=== PATIENT | female | born 1980 | race Caucasian/White ===

== ENCOUNTER → 2021-08-22 10:15 | Outpatient (CLI) | payer OTHER, SELFPAY ==
[2021-08-22 12:35] LABS: Vitamin D,25 Hydroxy 20.8 ng/mL
[2021-08-22 12:40] LABS: Anion Gap 9 (5-15); BUN 8 mg/dL (7-18); BUN/Creat Ratio 11.6 RATIO (10-20); Calcium,Total 8.3 mg/dL (8.5-10.1); Chloride 107 mmol/L (98-107); Cholesterol 165 mg/dL (200); Creatinine, Serum 0.69 mg/dL (0.55-1.02); EST Glomerular Filtration Rate 100 mL/min (>60); Est Glom Filt Rate - Afr Amer 122 mL/min (>60); Glucose 106 mg/dL (74-106); High Density Lipoprotein 51 mg/dL; Potassium 4.1 mmol/L (3.5-5.1); Sodium Level 140 mmol/L (136-145); Thyroid Stim Hormone (TSH) 2.22 uIU/mL (0.358-3.74); Triglycerides 120 mg/dL; Very Low Density Lipoprotein 24 mg/dL (5-40)
== END ==
PROVIDERS: PCP Family Medicine; Referring Provider Family Medicine; Visit Provider Family Medicine
DX: Z00.00 Encounter for general adult medical examination without abnormal findings (principal); E28.2 Polycystic ovarian syndrome
CPT/HCPCS: 36415; 80048; 80061; 82306; 84403; 84443

== ENCOUNTER → 2021-09-11 18:06 | Outpatient (CLI) | payer OTHER, SELFPAY | PROVIDERS: PCP Family Medicine; Visit Provider Family Medicine | DX: Z20.822 Contact with and (suspected) exposure to COVID-19 (principal) | CPT/HCPCS: 87635; U0005; U0003 ==

== ENCOUNTER → 2021-09-13 17:51 | Outpatient (CLI) | payer OTHER, SELFPAY ==
[2021-09-13 18:58] LABS: Probe Check PASS; Specimen Processing Control PASS
== END ==
PROVIDERS: Visit Provider Family Medicine
DX: Z20.822 Contact with and (suspected) exposure to COVID-19 (principal)
CPT/HCPCS: 87635; U0005; U0003

== ENCOUNTER 2021-09-28 10:00 | Outpatient (RCR) | payer OTHER, SELFPAY ==
--- NOTE | 2021-08-08 15:38 | HP.OTEVAL ---
Patient's Visit Information MIA ESTEVES is a 41 year old F, referred to Occupational Therapy by Dr. Tavo Mcginnis MD, with a diagnosis of Right gamekeeper's thumb. Date of Evaluation: 08/08/21 Occupational Therapist: Benita Toth, OTR/L, CHT - Subjective This 41 year old female was seen for OT eval with dx of right gamekeeper's thumb. pt states this has bothered her for sometime opening jars- but last three weeks pain has increased. Pt would like to decrease her pain to return to her PLOF. - ADLs Fasteners: Buttons, Snaps Comments: pain with changing Christine diaper - Pain right hand 0 Pain Intensity Range: 3 - ROM CMC: right 15 left 15 MP: right 45 left 50 IP: right 65 left 70 - Strength Appliquer Zigzag: right 45 left 55 Lateral Pinch: right 4 left 10 Tripod Pinch: right 8 left 8# - Quick DASH-Disab of Arm,Shoulder& Hand Quick DASH Score: 27.2725 - Goals Goal:: pt will demo a increase in right ultrasonographer strength by 15# or greater by d/c to increase pts IND with ADLs and IADls. pt will demo a increase in lateral pinch by 2# to increase pts ind. by ADls and IADls by d/c Goal:: pt will report no pain greater than 1/10 with use of right hand with ADLs and IADls by d/c Goal:: pt will demo increase in right thumb stability while keeping joint protect diane. to decrease lateral stress on MCP of right thumb by d.c - Rehabilitation General Assessment: pt demo with right thumb instability increasing pain with use of right hand with ADLs and IADLs. pt demo need for skilled OT services 1-2x week for 2-4 weeks. Today therapist ed, pt on thumb mechanics and need of support with MP instability- pt demo understanding and agree to PLOC. Rehabilitation Potential: Good - Anticipated Interventions A/AAROM/PROM, Strengthening, Modalities, Orthoses, Joint Protection/Energy Conservation, Ergonomic Education, Education re Diagnosis - Visit Plan Frequency: 1-2x /Week Duration: 2-4 Weeks TEXT: Thank you for the opportunity to evaluate your patient. For Medicare and Medicare HMO plans, please review the plan of care and approve it. It will need to be FAXED BACK to us at [phone] for Medicare purposes. Please let me know if there are questions or concerns regarding this plan of care. Physician Signature: Date:
--- NOTE | 2021-09-28 10:18 | HP.OTDCSUM_ITS ---
It has been my pleasure to treat MIA ESTEVES under orders from Dr. Tavo Mcginnis MD, for the diagnosis of Right gamekeeper's thumb for a total of 8 visit(s). Please see the following information for a summary of their discharge status. % Improvement: 98 Objective/Function: pt demo with a right fresh work inspector strength of 40# and left at 40#. pt reports no pain and has made adj. to prevent UCL stress of right MP. Patient Goals: Decrease Pain Goal:: pt will demo a increase in right fresh work inspector strength by 15# or greater by d/c to increase pts IND with ADLs and IADls. pt will demo a increase in lateral pinch by 2# to increase pts ind. by ADls and IADls by d/c Goal:: pt will report no pain greater than 1/10 with use of right hand with ADLs and IADls by d/c Goal:: pt will demo increase in right thumb stability while keeping joint prot ect diane. to decrease lateral stress on MCP of right thumb by d.c Plan: Cont POC Discharge Comments: pt was seen for 7 OT treatments for UCL -game keepers thumb. pt reports no pain and ind. with ADLs and IADLs. pt has met goals and is d.c at this time. If there are questions or concerns regarding this patient's occupational therapy, please fell free to call me at [phone]. Thank you for the referral of this patient. Sincerely, Benita Toth, OTR/L, CHT
== END 2021-09-28 12:53 | disposition home or self-care (01) ==
LOC: OT 10:00
PROVIDERS: PCP Family Medicine; Referring Provider Family Medicine; Visit Provider Family Medicine
DX: S63.641D Sprain of metacarpophalangeal joint of right thumb, subsequent encounter (principal)
CPT/HCPCS: 97035; 97110; 97166; 97530; 97760

== ENCOUNTER → 2021-10-12 | Outpatient (CLI) | payer OTHER, SELFPAY | END | disposition home or self-care (01) | LOC: LABSPEC 11-06 13:19 | PROVIDERS: Visit Provider Nurse Practitioner Family | DX: Z20.822 Contact with and (suspected) exposure to COVID-19 (principal) | CPT/HCPCS: 87635; U0005; U0003 ==

== ENCOUNTER 2021-11-06 13:17 | Outpatient (CLI) | payer OTHER, SELFPAY | END 2021-11-06 23:59 | disposition short-term general hospital (02) | LOC: LABSPEC 13:18 | PROVIDERS: Referring Provider Physician Assistant Surgical; Visit Provider Physician Assistant Surgical | DX: U07.1 COVID-19 (principal) | CPT/HCPCS: 87635; U0003; U0005 ==

== ENCOUNTER → 2022-11-16 | Outpatient (CLI) | payer OTHER, SELFPAY ==
[2022-11-16 12:43] LABS: Vitamin D,25 Hydroxy 32.9 ng/mL
[2022-11-16 12:56] LABS: Anion Gap 8 (5-15); BUN 8 mg/dL (7-18); BUN/Creat Ratio 11.1 RATIO (10-20); Calcium,Total 8.6 mg/dL (8.5-10.1); Chloride 108 mmol/L (98-107); Cholesterol 151 mg/dL (200); Creatinine, Serum 0.72 mg/dL (0.55-1.02); EST Glomerular Filtration Rate 95 mL/min (>60); Est Glom Filt Rate - Afr Amer 115 mL/min (>60); Glucose 106 mg/dL (74-106); High Density Lipoprotein 45 mg/dL; Potassium 4.6 mmol/L (3.5-5.1); Sodium Level 140 mmol/L (136-145); Thyroid Stim Hormone (TSH) 2.26 uIU/mL (0.358-3.74); Triglycerides 81 mg/dL; Very Low Density Lipoprotein 16 mg/dL (5-40)
== END | disposition home or self-care (01) ==
LOC: MFPLAB 09:35
PROVIDERS: PCP Family Medicine; Referring Provider Family Medicine; Visit Provider Family Medicine
DX: Z00.00 Encounter for general adult medical examination without abnormal findings (principal); F41.9 Anxiety disorder, unspecified
CPT/HCPCS: 36415; 80048; 80061; 82306; 84443